=== PATIENT | female | born 1975 | race Caucasian/White ===

== ENCOUNTER → 2025-05-28 | Outpatient (CLI) | payer MEDICAID, SELFPAY ==
[2025-05-28 18:16] LABS: Potassium 4.2 mmol/L (3.3-5.1)
== END | disposition home or self-care (01) ==
LOC: MTLAB 15:08
PROVIDERS: PCP Family Medicine; Referring Provider Physician Assistant; Visit Provider Physician Assistant
DX: L64.8 Other androgenic alopecia (principal); Z79.899 Other long term (current) drug therapy
CPT/HCPCS: 36415; 84132